=== PATIENT | male | born 1975 | race Caucasian/White ===

== ENCOUNTER 2022-08-19 11:51 | Outpatient (CLI) | payer OTHER, SELFPAY ==
--- OUTSIDE RECORDS SUMMARY | 2022-08-19 07:57 | XMS_ITS | Clinical Summary ---
:1975 Author Organization [facility] [place] [address] Care Team Providers Name Role Phone Pardeep Garza MD Primary Care Provider [phone] Allergies Active Allergy Reactions Severity Noted Date Comments Cefazolin Rash 02/19/2016 Diatrizoate Meglumine (Iv Contrast Dye) *Unknown 0 02/09/2016 Medications Medication Sig Dispensed Refills Start Date End Date Status acetaminophen (TYLENOL Take 2 tablets by 0 6 Active EXTRA STRGTH) 500 mg mouth every 6 tablet hours if needed for Temp>101.5F (38.6C). Max acetaminophen dose: 4000mg in 24 hrs. artificial tears, peg Place 1-2 Drops 0 03/01/2016 Active 400-propylene glycol, into both eyes (SYSTANE) 0.4-0.3 % every 2 hours if drop needed for Dry ophthalmicIndications: Eyes. Physical deconditioning polyethylene glycol Take 17 g by mouth 0 03/01/2016 Active (MIRALAX; GLYCOLAX) 17 once daily if g powder for needed for solutionIndications: Constipation. Constipation by delayed colonic transit rivaroxaban (XARELTO) Take 2 tablets by 30 tablet 0 03/22/2016 Active 10 mg mouth once daily. tabletIndications: DVT of lower extremity, bilateral (HC), Acute saddle pulmonary embolism with acute cor pulmonale (HC) loratadine (CLARITIN) Take 1 tablet by 30 tablet 0 03/04/2016 Active 10 mg mouth once daily. tabletIndications: Pneumonia due to methicillin resistant Staphylococcus aureus, unspecified laterality, unspecified part of lung multivitamins pediatric Take 1 tablet by 0 6 Active chewable (FLINTSTONES mouth 2 times MULTIVITAMIN) chewable daily. tablet METHYLPREDNISOLONE ORAL Take by mouth. 0 Active Active Problems Problem Noted Date Chest pain 03/05/2016 Cough 03/05/2016 Nephrolithiasis 03/01/2016 Physical deconditioning 02/25/2016 Acute saddle pulmonary embolism with acute cor pulmona le 02/24/2016 DVT of lower extremity, bilateral 02/24/2016 Acute respiratory failure 02/09/2016 Pneumonia due to methicillin resistant Staphylococcus aureus 02/09/2016 REFLUX, ESOPHAGEAL 02/16/2000 CALCULUS, URINARY NOS Resolved Problems Problem Noted Date Resolved Date INJURY, CRUSHING, BACK 09/12/2001 03/05/2016 Family History Medical History Relation Name Comments Genetic Other 1 MGF with lung ca ncer~MGM with leukemia~PGM with heart disease-several MIs~father with bladder cancer, kidney stones~No histor y of bleeding disorders, problems with anesthesia, or m alignant hyperthermia Genetic Other 2 MGF with lung ca ncer~MGM with leukemia~PGM with heart disease-several MIs~father with bladder cancer, kidney stones~No histor y of bleeding disorders, problems with anesthesia, or m alignant hyperthermia Relation Name Status Comments Other 1 Other 2 Social History Tobacco Use Types Packs/Day Years Used Date Former Smoker 0 Quit: 01/13/20 06 Comments: quit 1999 Alcohol Use Standard Drinks/Week Comments Yes 0 (1 standard drink = 0.6 oz pure Alcoho lic Drinks/day: 0, alcohol) occassionally Alcohol Habits Answer Date Recorded How often do you have a drink Not asked containing alcohol? How many drinks containing alcohol Not asked do you have on a typical day when you are drinking? How often do you have six or more Not asked drinks on one occasion? Comment: Alcoholic Drinks/day: 0, 02/09/2016 occassionally Sex Assigned at Date Recorded Not on file Obstetrics History Last Filed Vital Signs Vital Sign Reading Time Taken Comments Blood Pressure 131/83 04/06/2016 2:00 PM CDT Pulse 93 04/06/2016 2:00 PM CDT Temperature 36.3 ??C (97.3 ??F) 04/06/2016 2:00 PM CDT Respiratory Rate 16 04/06/2016 2:00 PM CDT Oxygen Saturation 93% 04/06/2016 2:00 PM CDT Inhaled Oxygen Concentration - - Weight 123.8 kg (273 lb) 04/06/2016 10:07 AM CDT Height 180.3 cm (5' 11) 04/06/2016 10:07 AM CDT Body Mass Index 38.08 04/06/2016 10:07 AM CDT Plan of Treatment Health Maintenance Due Date Last Done Comments COVID-19 vaccine series (#1) 02/19/1976 Tdap 1986 Depression screening for age 12+ 1987 BMI (ht and wt on same day) for age 18+ 1993 Hepatitis C screening for age 18-79 1993 Tetanus booster 1995 Colonoscopy through age 75 2020 Lipids for age 45-75 2020 Influenza for age 9-49 07/15/2022 Results Not on filefrom Last 3 Months Additional Health Concerns Infection Onset Date Last Indicated MRSAComment: Order contact precautions. Nares surveillance 0 02/18/2016 02/18/2016 cultures needed to clear patient. #1 #2 +MRSA 02/16/16 ET suction Advance Directives Latest Code Status on File Code Status Date Activated Date Inactivated Comments Full Code 03/01/2016 11:42 AM 03/06/2016 4:00 PM Code Status Discussion: Discussed Full Code 02/09/2016 3:24 AM 03/01/2016 11:42 AM Care Teams Staff Nurse Relationship Specialty Start Date End Date Pardeep Garza MD PCP - General Family Practice 02/26/16
[2022-08-19 13:31] LABS: Creatinine Urine 45.1 mg/dL
[2022-08-19 13:36] LABS: Microalbumin Creatinine Ratio 60 mg/g (0-30); Microalbumin Urine 3 mg/dL
[2022-08-19 22:03] LABS: Chloride* 101 mmol/L (96-114); Potassium* 4.3 mmol/L (3.6-5.1); Sodium* 139 mmol/L (135-149)
[2022-08-19 22:06] LABS: Blood Urea Nitrogen* 13 mg/dL (5-24); Carbon Dioxide* 25 mmol/L (20-32); Cholesterol* 170 mg/dL (90-199); Creatinine* 0.7 mg/dL (0.5-1.5); Estimated Glomerular Filt Rate 115 ml/min; Glucose* 120 mg/dL (60-115)
[2022-08-19 22:07] LABS: Calcium* 9.7 mg/dL (8.4-10.6); HDL Cholesterol* 27 mg/dL (>=40); LDL Cholesterol Calculated 114 mg/dL (<100); Triglycerides* 144 mg/dL (40-149)
== END 2022-08-19 11:52 | disposition home or self-care (01) ==
PROVIDERS: PCP Family Medicine; Visit Provider Family Medicine
DX: E11.9 Type 2 diabetes mellitus without complications (principal); D68.51 Activated protein C resistance; Z13.6 Encounter for screening for cardiovascular disorders; R80.9 Proteinuria, unspecified
CPT/HCPCS: 80048; 80061; 82043; 82570

== ENCOUNTER 2022-09-24 10:21 | Outpatient (CLI) | payer OTHER, SELFPAY ==
--- OUTSIDE RECORDS SUMMARY | 2022-09-24 10:24 | XMS_ITS | Clinical Summary ---
:1975 Author Organization [facility] [place] [address] Care Team Providers Name Role Phone Pardeep Garza MD Primary Care Provider [phone] Allergies Active Allergy Reactions Severity Noted Date [...] 3:24 AM 03/01/2016 11:42 AM Care Teams Locomotive Boilermaker Relationship Specialty Start Date End Date Pardeep Garza MD PCP - General Family Practice 02/26/16
[2022-09-24 13:17] LABS: Vitamin B12* 701 pg/mL (243-894)
== END 2022-09-24 10:22 | disposition home or self-care (01) ==
PROVIDERS: PCP Family Medicine; Visit Provider Family Medicine
DX: I10 Essential (primary) hypertension (principal); E11.9 Type 2 diabetes mellitus without complications; G62.9 Polyneuropathy, unspecified; R80.9 Proteinuria, unspecified
CPT/HCPCS: 82607; 84443

== ENCOUNTER 2023-12-08 09:02 | Outpatient (CLI) | payer OTHER, SELFPAY ==
--- OUTSIDE RECORDS SUMMARY | 2023-12-08 09:29 | XMS_ITS | Clinical Summary ---
Author Name Unknown Organization [facility] Address [place], [place] [address] Care Team Providers Care Global Marketing Specialist Name Role Phone Pardeep Garza MD Primary Care Provider [phone] Allergies Active Allergy Reactions Criticality Noted Date Comments Cefazolin Rash 02/19/2016 Diatrizoate Allergen *Unknown 02/09/2016 Medications Medication Sig Dispensed Refills Start Date End Date Status acetaminophen (TYLENOL EXTRA STRGTH) 500 mg tablet Take 2 tablets by mouth every 6 hours if needed for Temp>101.5F (38.6C). Max acetaminophen dose: 4000mg in 24 hrs. 0 03/01/2016 Active artificial tears, peg 400-propylene glycol, (SYSTANE) 0.4-0.3 % drop ophthalmicIndication s:Physical deconditioning Place 1-2 Drops into both eyes every 2 hours if needed for Dry Eyes. 0 03/01/2016 Active polyethylene glycol (MIRALAX; GLYCOLAX) 17 g powder for solutionIndications: Constipation by delayed colonic transit Take 17 g by mouth once daily if needed for Constipation. 0 03/01/2016 Active rivaroxaban (XARELTO) 10 mg tabletIndications:DV T of lower extremity, bilateral (HC),Acute saddle pulmonary embolism with acute cor pulmonale (HC) Take 2 tablets by mouth once daily. 30 tablet 0 03/22/2016 Active loratadine (CLARITIN) 10 mg tabletIndications:Pn eumonia due to methicillin resistant Staphylococcus aureus, unspecified laterality, unspecified part of lung Take 1 tablet by mouth once daily. 30 tablet 0 03/04/2016 Active multivitamins pediatric chewable (FLINTSTONES MULTIVITAMIN) chewable tablet Take 1 tablet by mouth 2 times daily. 0 03/04/2016 Active METHYLPREDNISOLONE ORAL Take by mouth. 0 Active Active Problems Problem Noted Date Diagnosed Date Chest pain 03/05/2016 Cough 03/05/2016 Nephrolithiasis 03/01/2016 Physical deconditioning 02/25/2016 Acute saddle pulmonary embolism with acute cor p ulmonale 02/24/2016 DVT of lower extremity, bilateral 02/24/2016 Acute respiratory failure 02/09/2016 Pneumonia due to methicillin resistant Staphylococcus aureus 02/09/2016 REFLUX, ESOPHAGEAL 02/16/2000 CALCULUS, URINARY NOS Resolved Problems Problem Noted Date Diagnosed Date Resolved Date INJURY, CRUSHING, BACK 09/12/200103/05 Family History Medical History Relation Name Comments Genetic Other 1 MGF with lung c ancer~MGM with leukemia~PGM with heart disease-several MIs~father with bladder cancer, kidney stones~No history of bleeding disorders, problems with anesthesia, or malignant hyperthermia Genetic Other 2 MGF with lung c ancer~MGM with leukemia~PGM with heart disease-several MIs~father with bladder cancer, kidney stones~No history of bleeding disorders, problems with anesthesia, or malignant hyperthermia Relation Name Status Comments Other 1 Other 2 Social History Tobacco Use Types Packs/Day Years Used Date Smoking Tobacco: Former Cigarettes Q uit: 01/12/2006 Comments:quit 1999 Alcohol Use Standard Drinks/Week Comments Yes 0 (1 standard drink = 0.6 oz pure alcohol) Alcoholic Drinks/day: 0, occassionally Sex and Gender Information Value Date Recorded Sex Assigned at Not on file Gender Identity Not on file Sexual Orientation Not on file Obstetrics History Last Filed Vital Signs Vital Sign Reading Time Taken Comments Blood Pressure 131/83 04/06/2016 2:00 PM CDT Pulse 93 04/06/2016 2:00 PM CDT Temperature 36.3 ??C (97.3 ??F) 04/06/2016 2:00 PM CD T Respiratory Rate 16 04/06/2016 2:00 PM CDT [...] age 18+ 1993 Hepatitis C screening for ag e 18-79 1993 Tetanus booster 1995 Colonoscopy through age 75 2020 Lipids for age 45-75 2020 Influenza for age 9-49 07/15/2023 HIV for age 15-65 Completed 02/10/2016 Pneumococcal series for age 6-64 Aged Out No longer eligible based on patient's age to complete this topic Additional Health Concerns Infection Onset Date Last Indicated MRSA Comment:Order contact precautions. Nares surveillance cultures needed to clear patient. #1 #2 +MRSA 02/16/16 ET suction 02/18/2016 02/18/2016 Advance Directives Latest Code Status on File Code Status Date Activated Date Inactivated Comments Full Code 03/01/2016 11:42 AM 03/06/2016 4:00 PM Question Answer Comments Code Status Discussion: Discussed Code Status History Code Status Date Activated Date Inactivated Comments Full Code 02/09/2016 3:24 AM 03/01/2016 11:42 AM Care Teams Global Marketing Specialist Relationship Specialty Start Date End Date Pardeep Garza MD PCP - General Family Practice 02/26/16
== END 2023-12-08 09:03 | disposition home or self-care (01) ==
PROVIDERS: PCP Family Medicine; Visit Provider Family Medicine
DX: Z00.00 Encounter for general adult medical examination without abnormal findings (principal); R53.83 Other fatigue; E11.9 Type 2 diabetes mellitus without complications; G47.33 Obstructive sleep apnea (adult) (pediatric); N52.9 Male erectile dysfunction, unspecified; D68.51 Activated protein C resistance
CPT/HCPCS: 80053; 80061; 82043; 82570; 84270; 84402; 84403

== ENCOUNTER 2025-03-19 11:06 | Outpatient (CLI) | payer OTHER, SELFPAY | END 2025-03-19 11:07 | disposition home or self-care (01) | LOC: LKVREF 11:08 | PROVIDERS: PCP Family Medicine; Visit Provider Family Medicine | DX: R79.89 Other specified abnormal findings of blood chemistry (principal); R53.83 Other fatigue; E11.9 Type 2 diabetes mellitus without complications; D68.51 Activated protein C resistance; I26.99 Other pulmonary embolism without acute cor pulmonale; Z13.1 Encounter for screening for diabetes mellitus; Z79.01 Long term (current) use of anticoagulants | CPT/HCPCS: 80053; 80061; 82043; 82570 ==